=== PATIENT | female | born 1990 | race African-American/Black ===

== ENCOUNTER 2024-05-17 14:08 | Outpatient (CLI) | payer OTHER, SELFPAY ==
--- NOTE | ~2024-05-17 | US_ITS ---
EXAMINATION: US soft tissue UE RT DATE: 05/17/2024 14:36 INDICATION: Lump at the right index finger TECHNIQUE: Multiple grayscale and Doppler ultrasound images of the region of concern at the right sec ond digit were obtained. COMPARISON: None FINDINGS: There is a 6 x 2 x 6 mm hypoechoic lesion in the subcutaneous tissues at the region of the palpable a bnormality which is tortuous to the proximal interphalangeal joint. This appears compressible with a hypoechoic tract extending deeper towards the region of the proximal interphalangeal joint which woul d favor a small ganglion cyst. No evident internal vascular flow on color Doppler. IMPRESSION: 1. Avascular 6 x 2 x 6 mm hypoechoic lesion at the region of concern with features as detailed above favoring a ganglion cyst arising from the proximal interphalangeal joint. Reviewed, dictated and finalized at location B. IMPRESSION: 1. Avascular 6 x 2 x 6 mm hypoechoic lesion at the region of concern with featu res as detailed above favoring a ganglion cyst arising from the proximal interp halangeal joint.
[2024-05-17 15:03] LABS: Hematocrit 38.1 % (37.0-47.0); Hemoglobin 12.7 g/dL (12.0-15.0); Mean Corpuscular HGB Conc 33.3 g/dl (32-36); Mean Corpuscular Hemoglobin 31.1 pg (26-34); Mean Corpuscular Volume 93.2 fl (80-100); Mean Platelet Volume 10.3 fl (7.4-10.4); Platelet Count Result 252 k/mm3 (150-375); Red Blood Count 4.09 M/mm3 (4.2-5.4); White Blood Count 8.6 K/mm3 (4.5-10.0)
[2024-05-17 15:16] LABS: Alanine Aminotransferase 26 U/L (6-35); Albumin Level 4.4 g/dL (3.5-5.1); Alkaline Phosphatase 58 U/L (38-126); Anion Gap 7 mmol/L (4-12); Aspartate Amino Transferase 24 U/L (14-36); Bilirubin,Total 0.4 mg/dL (0.2-1.3); Blood Urea Nitrogen 11 mg/dL (7-17); Calcium 8.6 mg/dL (8.4-10.2); Carbon Dioxide 25 mmol/L (22-30); Chloride 107 mmol/L (98-107); Estimated Glomerular Filt Rate > 60; Glucose 85 mg/dL (65-110); Potassium 3.5 mmol/L (3.4-5.0); Sodium 139 mmol/L (137-145)
[2024-05-17 15:22] LABS: Hemoglobin A1C 5.7 % (<5.7)
== END 2024-05-17 14:09 | disposition home or self-care (01) ==
PROVIDERS: PCP Nurse Practitioner Family; Visit Provider Nurse Practitioner Family
DX: R22.31 Localized swelling, mass and lump, right upper limb (principal); Z13.0 Encounter for screening for diseases of the blood and blood-forming organs and certain disorders involving the immune mechanism; Z13.1 Encounter for screening for diabetes mellitus; Z13.29 Encounter for screening for other suspected endocrine disorder; Z13.228 Encounter for screening for other metabolic disorders
CPT/HCPCS: 36415; 76882; 80053; 83036; 84443; 85027